=== PATIENT | male | born 1995 ===

== ENCOUNTER → 2017-04-12 | Outpatient (CLI) | payer OTHER ==
--- NOTE | 2017-04-12 11:47 | DIAGNOSTIC IMAGING REPORT ---
R FOREARM 2 VIEWS ROUTINE CLINICAL HISTORY: Forearm pain status post trauma COMPARISON: None. DISCUSSION: No fractures or dislocations are visualized. There are no erosive or destructive changes. IMPRESSION: No fractures identified. Electronically signed by: Melvin Torres M.D. 04/12/2017 11:45 AM Dictated Date/Time: 04/12/2017 11:44 AM
== END | disposition home or self-care (01) ==
LOC: C.RADBC 11:16
PROVIDERS: ATTEND Physician Assistant Medical
DX: M25.539 Pain in unspecified wrist (principal)